=== PATIENT | female | born 2005 | race Caucasian/White ===

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

== ENCOUNTER 2023-05-28 14:34 | Day surgery (SDC) | payer BC, MEDICAID ==
[2023-05-28 15:48] VITALS: BMI 23.3
[2023-05-28 17:52] LABS: Bilirubin Neg (Negative); Blood, Urine 10 (Negative); Clarity Slightly Cloudy (Clear); Glucose, Urine (Dipstick) Normal (Negative); Ketone, Urine Negative (Negative); Leukocyte 500 (Negative); Nitrite Negative (Negative); Protein, Urine (Dipstick) 15 mg/dl (Neg-Trace); Specific Gravity, Urine 1.015 (1.005-1.030); Urobilinogen Normal mg/dL (Less than 2)
[2023-05-28 18:04] LABS: CAUTI Indications for Culture Pregnancy; RBC/HPF 0-3 HPF (0-3)
[2023-05-28 18:05] LABS: Bacteria/HPF 4+ HPF (None Seen)
[2023-05-28 18:06] LABS: Urine Culture Reflex Yes Yes
[2023-05-29 01:27] LABS: Chlamydia by PCR, Vaginal Swab DETECTED (NotDetected); GC by PCR, Vaginal Swab Not Detected (NotDetected); Tric.vaginalis PCR,Vaginal Sw Not Detected (NotDetected)
== END 2023-05-28 18:53 | disposition home or self-care (01) ==
LOC: CSHLD/OP 14:34
PROVIDERS: ATTEND Family Medicine
DX: O46.93 Antepartum hemorrhage, unspecified, third trimester (principal); O99.333 Smoking (tobacco) complicating pregnancy, third trimester; F17.290 Nicotine dependence, other tobacco product, uncomplicated; O99.013 Anemia complicating pregnancy, third trimester; D64.9 Anemia, unspecified; O98.813 Other maternal infectious and parasitic diseases complicating pregnancy, third trimester; A56.2 Chlamydial infection of genitourinary tract, unspecified; Z79.899 Other long term (current) drug therapy; Z91.013 Allergy to seafood; Z3A.32 32 weeks gestation of pregnancy
CPT/HCPCS: 76817; 81001; 87086; 87480; 87491; 87510; 87591; 87660; 87661; 99285

== ENCOUNTER 2023-07-19 05:30 | Inpatient (IN) | payer BC, OTHER ==
[2023-07-19] MEDS ORDERED: Promethazine HCl 25 MG/ML VIAL IM PRN (21:08)
[2023-07-19] MEDS ORDERED: Lidocaine 1% (PF) 30 ML VIAL SC PRN (21:08)
[2023-07-19] MEDS ORDERED: Ondansetron PF 4 MG/2 ML Vial IVP PRN (21:08)
[2023-07-19] MEDS ORDERED: hydrALAZINE 20 MG/ML VIAL SLOW IVP PRN ×2 (21:08)
[2023-07-19 21:50] LABS: Hematocrit 31.6 % (34.9-44.5); Hemoglobin 10.5 g/dL (12.0-15.5); Mean Corpuscular HGB CONC 33.2 g/dL (32.0-36.0); Mean Corpuscular Hemoglobin 26.7 pg (27.0-33.0); Mean Corpuscular Volume 80.4 fl (81.6-98.3); Mean Platelet Volume 12.6 fl (7.4-10.4); Platelet Count 203 10x3/uL (150-450); RBC Distribution Width 14.4 % (11.5-14.5); Red Blood Cell (RBC) Count 3.93 10x6/uL (3.90-5.03); White Blood Cell (WBC) Count 10.1 10x3/uL (3.5-10.5)
[2023-07-19] MEDS: Misoprostol 100 MCG TAB VAG SCH (21:54)
[2023-07-19 22:32] LABS: Syphilis Antibody Nonreactive (Nonreactive); Syphilis Antibody Index 0.02 S/CO (<1.00 Non-Reactive)
[2023-07-19 22:33] LABS: HBSAg Index 0.19 S/CO (0-0.99); Hep B Surf Ag - L&D Non-Reactive S/CO (NonReactive)
[2023-07-20] MEDS ORDERED: Acetaminophen 500 MG TAB PO PRN (02:59)
[2023-07-20 03:10] VITALS: BMI 25.1
[2023-07-20] MEDS: fentaNYL 50 mcg/mL 1 mL Vial SLOW IVP PRN (03:23)
[2023-07-20 03:47] LABS: Amphetamine Not Detected (NotDetected); Barbiturates Screen Not Detected (NotDetected); Benzodiazepine Screen Not Detected (NotDetected); Cocaine Metabolite Screen Not Detected (NotDetected); Methadone Not Detected (NotDetected); Methamphetamine Not Detected (NotDetected); Opiate Screen Not Detected (NotDetected); Oxycodone Screen Not Detected (NotDetected); Phencyclidine (PCP) Not Detected (NotDetected); THC/Cannabinoid Screen Not Detected (NotDetected); Tricyclic Screen Not Detected (NotDetected)
[2023-07-20] MEDS ORDERED: Ondansetron PF 4 MG/2 ML Vial IVP PRN (05:07)
[2023-07-20] MEDS ORDERED: Moisturizing Cream (Eucerin) 113 GM JAR TOP PRN (05:07)
[2023-07-20] MEDS ORDERED: Lactated Ringer's 500 ML IV PRN (05:07)
[2023-07-20] MEDS ORDERED: diphenhydrAMINE 50 MG/ML VIAL IVP PRN (05:07)
[2023-07-20] MEDS ORDERED: ePHEDrine Sulfate 50 MG/10 ML VIAL SLOW IVP PRN (05:07)
[2023-07-20] MEDS ORDERED: Acetaminophen 325 MG TAB PO PRN (05:07)
[2023-07-20] MEDS ORDERED: Naloxone HCl 0.4 mg/ml Vial IVP PRN ×2 (05:07)
[2023-07-20] MEDS ORDERED: Promethazine HCl 25 MG/ML VIAL IM PRN (05:07)
[2023-07-20] MEDS ORDERED: Communication Order-Pharmacy FS SCH (05:15)
[2023-07-20] MEDS: fentaNYL 2 mcg/Ropivacaine 0.2% Epidural 100 ML CADD EPIDURAL SCH (05:20)
[2023-07-20] MEDS: Oxytocin 30 units/NS 500 ML 500 ML IV SCH (08:15)
[2023-07-20] MEDS ORDERED: Bupivacaine 0.25% HCL 30 ML VIAL ONE (10:00)
[2023-07-20 11:03] LABS: Analyzer IN Cardio CS NICU
[2023-07-20 11:06] LABS: Analyzer IN Cardio CS NICU; pH (Cord, venous) 7.378 (7.250-7.350)
[2023-07-20] MEDS: Ibuprofen 800 MG TAB PO PRN (14:40)
[2023-07-20] MEDS ORDERED: Bisacodyl 10 MG SUPP PR PRN (16:31)
[2023-07-20] MEDS ORDERED: diphenhydrAMINE 25 MG CAP PO PRN (16:31)
[2023-07-20] MEDS ORDERED: Methylergonovine 0.2 MG/ML VIAL IM PRN (16:31)
[2023-07-20] MEDS ORDERED: Acetaminophen 500 MG TAB PO SCH (16:31)
[2023-07-20] MEDS ORDERED: hydrALAZINE 20 MG/ML VIAL SLOW IVP PRN (16:31)
[2023-07-20] MEDS ORDERED: Preparation H Ointment 28 GM TUBE PR PRN (16:31)
[2023-07-20] MEDS ORDERED: Lanolin Ointment 7 GM TUBE TOP PRN (16:31)
[2023-07-20] MEDS ORDERED: Milk Of Magnesia 30 ML UDCUP PO PRN (16:31)
[2023-07-20] MEDS: fentaNYL/Ropivacaine Epidural 100 ML ONE (16:33)
[2023-07-20] MEDS: Boostrix 0.5 ML (Tdap) VIAL (>/=7 yrs of age) IM ONE (17:41)
[2023-07-20] MEDS: Ferrous Sulfate 325 MG TAB PO SCH (17:42)
[2023-07-20] MEDS: Acetaminophen 500 MG TAB PO SCH (17:42)
[2023-07-20] MEDS: Docusate 100 MG CAP PO SCH (21:10)
[2023-07-20] MEDS: Ibuprofen 800 MG TAB PO SCH (21:10)
[2023-07-20] MEDS: Benzocaine-Menthol 82.5 ML CAN TOP PRN (21:11)
[2023-07-21] MEDS: Prenatal Vitamin 1 TAB PO SCH (09:06)
[2023-07-22 07:48] VITALS: BP 118/80; TEMP 98.7
[2023-07-22] MEDS: Lidocaine 4% Patch TD SCH (11:40)
[2023-07-22] MEDS ORDERED: Transdermal Patch Removal TOP SCH (21:00)
== END 2023-07-22 13:40 | disposition home or self-care (01) | DRG 806 ==
LOC: CSHLD 19:59 → CSHPP 07-20 16:30
PROVIDERS: ADMIT Obstetrics & Gynecology; ATTEND Obstetrics & Gynecology
PROC: 10E0XZZ Delivery of Products of Conception, External Approach (ICD-10-PCS; principal; 2023-07-20)
PROC: 0KQM0ZZ Repair Perineum Muscle, Open Approach (ICD-10-PCS; 2023-07-20)
PROC: 10907ZC Drainage of Amniotic Fluid, Therapeutic from Products of Conception, Via Natural or Artificial Opening (ICD-10-PCS; 2023-07-20)
DX: O99.013 Anemia complicating pregnancy, third trimester (principal); O99.324 Drug use complicating childbirth; Z37.0 Single live birth; D50.9 Iron deficiency anemia, unspecified; F12.90 Cannabis use, unspecified, uncomplicated; O70.1 Second degree perineal laceration during delivery; Z3A.39 39 weeks gestation of pregnancy; O99.892 Other specified diseases and conditions complicating childbirth; R00.0 Tachycardia, unspecified; Z90.89 Acquired absence of other organs; Z83.3 Family history of diabetes mellitus
CPT/HCPCS: 51702; 80306; 82805; 85027; 86780; 86850; 86900; 86901; 87340; J0665; J2590; J3010

== ENCOUNTER 2024-12-05 05:51 | Day surgery (SDC) | payer OTHER ==
[2024-12-02 09:42] VITALS: BMI 19.2
[2024-12-05] MEDS ORDERED: PROPOFOL 20 ML ONE (06:31)
[2024-12-05] MEDS ORDERED: Ondansetron PF 4 MG/2 ML Vial ONE ×2 (06:31→07:53)
[2024-12-05] MEDS ORDERED: CEFAZOLIN 2 GM VIAL ONE (06:58)
[2024-12-05 07:08] LABS: #Basophils 0.05 10x3/uL (0.0-0.2); #Eosinophils 0.14 10x3/uL (0.0-0.5); #Monocytes 0.40 10x3/uL (0.0-1.1); #Neutrophils 3.21 10x3/uL (1.5-8.4); %Basophils 0.7 % (0.0-2.0); %Eosinophils 2.0 % (0.0-6.0); %Lymphocytes 45.1 % (18.0-47.0); %Monocytes 5.8 % (0.0-10.0); %Neutrophils 46.3 % (40.0-75.0); Hematocrit 34.1 % (34.9-44.5); Hemoglobin 10.7 g/dL (12.0-15.5); Mean Corpuscular Hemoglobin 24.7 pg (27.0-33.0); Mean Corpuscular Volume 78.6 fL (81.6-98.3); Platelet Count 267 10x3/uL (150-450); Red Blood Cell (RBC) Count 4.34 10x6/uL (3.90-5.03); White Blood Cell (WBC) Count 6.94 10x3/uL (3.5-10.5)
[2024-12-05] MEDS ORDERED: Ketorolac Tromethamine 30 MG (1 mL) VIAL ONE (07:25)
[2024-12-05 07:32] LABS: Anion Gap 10 mmol/L (10-20); BUN (Urea Nitrogen) 18 mg/dL (7.0-18.7); Calc. Creatinine Clearance 79 mL/min (70-130); Calcium 8.7 mg/dL (7.8-10.44); Carbon Dioxide 25 mmol/L (22-29); Chloride 108 mmol/L (98-107); Glucose 89 mg/dL (70-105); Potassium 4.3 mmol/L (3.5-5.1); Sodium 139 mmol/L (136-145)
[2024-12-05 07:35] LABS: BHCG - Serum Negative (NEGATIVE); Pregs Control Background? CLEAR/WHITE (CLR/WHITE); Pregs Control Bar Appear? YES (CONTROL BAR)
== END 2024-12-05 09:10 | disposition home or self-care (01) ==
LOC: CSHSDC 05:51
PROVIDERS: ATTEND Obstetrics & Gynecology
PROC: 0UPD8HZ Removal of Contraceptive Device from Uterus and Cervix, Via Natural or Artificial Opening Endoscopic (ICD-10-PCS; principal; 2024-12-05)
DX: T83.32XA Displacement of intrauterine contraceptive device, initial encounter (principal); Z87.891 Personal history of nicotine dependence; Z90.89 Acquired absence of other organs; Z91.041 Radiographic dye allergy status; Z91.013 Allergy to seafood; Y83.1 Surgical operation with implant of artificial internal device as the cause of abnormal reaction of the patient, or of later complication, without mention of misadventure at the time of the procedure
CPT/HCPCS: 36415; 80048; 84703; 85025; J1100; J1885; J2405; J2704; J3010